=== PATIENT | female | born 1975 | race Caucasian/White ===

== ENCOUNTER 2019-04-11 18:40 | Emergency (ER) | payer MEDICAID ==
[2019-04-11] MEDS ORDERED: PROPARACAINE 0.5% OPHTH DROPS 15 ML RIGHTEYE STA (19:43)
--- NOTE | 2019-04-11 20:20 | ED Physician Documentation ---
PD HPI OPHTHO - Stated complaint Stated Complaint: DEBRIS IN RT EYE - Chief complaint Chief Complaint: Heent - History obtained from History obtained from: Patient - History of Present Illness Timing - onset: Today (at 6pm) Timing - duration: Hours Timing - details: Abrupt onset Severity Comments: moderate Location: Right Quality / character: Aching Associated symptoms: Redness, FB sensation. No: Swelling, Tearing, Discharge, Matting, Photophobia, Double vision, Decreased vision, Loss of vision, Headache Contributing factors: Other (states she was using a skill saw without protective glasses or goggles and a piece of wood got in her R eye) - Treatment prior to arrival Treatment prior to arrival: irrigation Review of Systems Ten Systems: 10 systems reviewed and negative Constitutional: reports: Reviewed and negative Eyes: reports: Irritation. denies: Loss of vision, Decreased vision Ears: reports: Reviewed and negative Nose: reports: Reviewed and negative Throat: reports: Reviewed and negative Cardiac: reports: Reviewed and negative Respiratory: reports: Reviewed and negative GI: reports: Reviewed and negative Skin: reports: Reviewed and negative Musculoskeletal: reports: Reviewed and negative Neurologic: reports: Reviewed and negative Endocrine: reports: Reviewed and negative Immunocompromised: reports: Reviewed and negative PD PAST MEDICAL HISTORY - Past Medical History Past Medical History: No - Past Surgical History Past Surgical History: Yes General: Cholecystectomy, Other /[employer]: Other - Present Medications Home Medications: Ambulatory Orders Medication Instructions Recorded Confirmed Hydrocodone/Acetaminophen 1 - 2 each PO Q6H PRN #15 tablet 07/22/14 [Hydrocodon-Acetaminophen 5-325] cephALEXin [Keflex] 500 mg PO Q6H #28 capsule 07/22/14 - Allergies Allergies/Adverse Reactions: Allergies Allergy/AdvReac Type Severity Reaction Status Date / Time No Known Drug Allergies Allergy Verified 07/22/14 14:45 - Social History Does the pt smoke?: Yes Smoking Status: Current every day smoker Does the pt drink ETOH?: No Does the pt have substance abuse?: No - Immunizations Immunizations are current?: No Immunizations: TDAP >10years/unknown PD ED PE NORMAL - Vitals Vital signs reviewed: Yes - General General: Alert and oriented X 3, No acute distress, Well developed/nourished - HEENT HEENT: Atraumatic - Neck Neck: Supple, no meningeal sign - Cardiac Cardiac: RRR - Respiratory Respiratory: No respiratory distress - Abdomen Abdomen: Non distended - Female Female : Deferred - Rectal Rectal: Deferred - Derm Derm: Normal color, Warm and dry, No rash - Extremities Extremities: No deformity - Neuro Neuro: Alert and oriented X 3 Eye Opening: Spontaneous Motor: Obeys Commands Verbal: Oriented GCS Score: 15 - Psych Psych: Normal mood, Normal affect PD ED PE EXPANDED - Eyes Eyes: PERRL, Normal accommodation, EOMI, Right eye, Normal eyelids, Eyelid erythema, No eyelid FB (everted), Injected conj/sclera, Normal corneas (no evidence of conjunctival or scleral FB ), Anterior chambers clear. No: Exudate, Corneal abrasion, Corneal ulcer, Fluorescein uptake Results - Vitals Vitals: Vital Signs - 24 hr 04/11/19 04/12/19 18:51 00:52 Temperature 36.8 C 36.5 C Heart Rate 75 80 Respiratory 18 15 Rate Blood Pressure 122/76 128/70 O2 Saturation 100 99 Oxygen O2 Source Room air - Rads (name of study) CT orbits Radiology: Final report received, See rad report (negative for FB or abnormality ) PD MEDICAL DECISION MAKING - ED course Complexity details: reviewed results, re-evaluated patient, considered differential, d/w patient ED course: ddx- corneal FB, scleral FB, scleral or corneal abrasion, FB sensation, Orbital FB 43 y/o F with hx and exam as documented. R eye irritation after using a skill s aw. FB sensation despite irrigation. Despite garcia lamp exam and slit lamp exam and obtained CT orbits for FB there is no evidence of FB identified. I do not see a significant abrasion of the corneal or sclera though both are irritated.Her visual acuity is normal 20/25 bilaterally. I gave her erythromycin ointment in case of a small abrasion and provided her with Ophthalmology info for f/u advised her to call for an appt in the morning to recheck her symptoms. Offered her analgesics for her eye pain but she declined. Departure - Departure Disposition: 01 Home, Self Care Clinical Impression: Sensation of foreign body in eye Condition: Stable Record reviewed to determine appropriate education?: Yes Instructions: ED Eye Particle Conjunctiva FB Rslv Follow-Up: Osvaldo Villafana MD [Provider Admit Priv/Credential] - Tomorrow Comments: The CT scan of your eye today showed no foreign body. I also was unable to detect a foreign body on exam. Apply the prescribed ointment tonight to prevent infection. Follow up with the eye doctor tomorrow to recheck your eye exam. Forms: Activity restrictions Discharge Date/Time: 04/12/19 00:59
[2019-04-11] MEDS ORDERED: ERYTHROMYCIN OPHTH OINT 1 GM TUBE RIGHTEYE STA (22:49)
--- NOTE | 2019-04-11 23:46 | CT Report ---
Reason: R orbital foreign body Procedure Date: 04/11/2019 Accession Number: [id number] / [id number] Procedure: CT - ORBITS WO CPT Code: Final Report FULL RESULT: EXAM: CT ORBITS WITHOUT CONTRAST EXAM DATE: 04/11/2019 11:11 PM. CLINICAL HISTORY: R orbital foreign body while using power saw. COMPARISONS: None. TECHNIQUE: Thin-section axial images were acquired of the face without contrast. Post-processing: Coronal and sagittal reformats. Other: None. In accordance with CT protocol optimization, one or more of the following dose reduction techniques were utilized for this exam: automated exposure control, adjustment of mA and/or KV based on patient size, or use of iterative reconstructive technique. FINDINGS: Soft Tissue: No acute abnormality seen. Orbits: Symmetric and unremarkable. No radiopaque foreign body identified. Bones: No acute fracture seen. Dental disease. Temporomandibular Joints: The temporomandibular joints are symmetric and normally located. Sinuses: No mucosal thickening or air-fluid levels. Other: None. IMPRESSION: 1. No radiopaque foreign body seen. 2. Dental disease. RADIA
[2019-04-12 00:53] VITALS: BP 128/70
== END 2019-04-12 00:59 | disposition home or self-care (01) ==
LOC: ED 18:40
DX: H57.11 Ocular pain, right eye (principal); H57.89 Other specified disorders of eye and adnexa; F17.200 Nicotine dependence, unspecified, uncomplicated
CPT/HCPCS: 70480; 99284; J3490